=== PATIENT | female | born 1975 | race American Indian/Alaskan Native ===

== ENCOUNTER 2017-04-28 14:45 | Outpatient (CLI) | payer OTHER ==
--- NOTE | 2017-04-28 16:56 | Mammography Report ---
BILATERAL DIGITAL SCREENING MAMMOGRAM with CAD : 04/28/17 14:45:00 CLINICAL: Routine screening. COMPARISON:04/12/16 and 03/05/12 FINDINGS: The breasts are heterogeneously dense, which may obscure small masses.A group of right upper outer calcifications is not significantly changed compared to prior exams. No mass, architectural distortion or suspicious calcifications. IMPRESSION: No mammographic evidence of malignancy. BI-RADS CATEGORY: 2 -- Benign RECOMMENDATION: Routine mammographic screening in one year. COMMENT: Patient follow-up letters are generated by our [employer] application.
== END 2017-04-28 14:46 | disposition home or self-care (01) ==
LOC: SPVWC 14:45
PROVIDERS: ATTEND Family Medicine Adult Medicine
DX: Z12.31 Encounter for screening mammogram for malignant neoplasm of breast (principal)
CPT/HCPCS: 77067; G0202

== ENCOUNTER 2017-04-29 14:39 | Outpatient (CLI) | payer OTHER ==
--- NOTE | 2017-04-29 15:49 | XRay Report ---
ROUTINE CHEST, TWO VIEWS: HISTORY: chest pain. The trachea, heart, mediastinal contour, lung junior and bony thorax are unremarkable. IMPRESSION: Unremarkable chest x-ray.
== END 2017-04-29 14:40 | disposition home or self-care (01) ==
LOC: SPVIMAG 14:39
PROVIDERS: ATTEND Family Medicine Adult Medicine
DX: R07.81 Pleurodynia (principal); R07.9 Chest pain, unspecified
CPT/HCPCS: 71020

== ENCOUNTER 2019-01-22 09:23 | Outpatient (CLI) | payer BC ==
--- NOTE | 2019-01-25 09:47 | Mammography Report ---
BILATERAL SCREENING MAMMOGRAM DIGITAL WITH and with 3D TOMOSYNTHESIS INDICATION: Screening. COMPARISONS: 04/29/2017 FINDINGS: 2D and 3D craniocaudal and mediolateral oblique views of both breasts were obtained [employer] digital acquisition. The breasts are heterogeneously dense, which may obscure small masses and coronado it the sensitivity of mammography. Right upper calcifications are not significantly changed and have benign morphology. No suspicious findings are noted in either breast. In addition to standard review, the examination was analyzed for possible abnormalities using a [employer] ter-assisted detection device (iCAD). IMPRESSION: NO EVIDENCE OF MALIGNANCY IN EITHER BREAST. SCREENING MAMMOGRAPHY IN ONE YEAR IS RECOMMENDED. BI-RADS CATEGORY 2: BENIGN COMMENT: Patient follow-up letters are generated by our [employer] application. Signer Name: Eduard Tsai MD Signed: 01/25/2019 9:43 AM Workstation Name: [id number]
--- NOTE | 2019-01-25 09:49 | Mammography Report ---
BILATERAL SCREENING MAMMOGRAM DIGITAL WITH and with 3D TOMOSYNTHESIS INDICATION: Screening. COMPARISONS: 04/29/2017 FINDINGS: 2D and 3D craniocaudal and mediolateral oblique views of both breasts were obtained [employer] digital acquisition. The breasts are heterogeneously dense, which may obscure small masses and coronado it the sensitivity of mammography. Right upper calcifications are not significantly changed and have benign morphology. No suspicious findings are noted in either breast. In addition to standard review, the examination was analyzed for possible abnormalities using a [employer] ter-assisted detection device (iCAD). IMPRESSION: NO EVIDENCE OF MALIGNANCY IN EITHER BREAST. SCREENING MAMMOGRAPHY IN ONE YEAR IS RECOMMENDED. BI-RADS CATEGORY 2: BENIGN COMMENT: Patient follow-up letters are generated by our [employer] application. Signer Name: Eduard Tsai MD Signed: 01/25/2019 9:44 AM Workstation Name: [id number]
== END 2019-01-22 09:24 | disposition home or self-care (01) ==
LOC: SPVWC 09:23
PROVIDERS: ATTEND Obstetrics & Gynecology
DX: Z12.31 Encounter for screening mammogram for malignant neoplasm of breast (principal)
CPT/HCPCS: 77063; 77067